=== PATIENT | female | born 1995 | race Caucasian/White ===

== ENCOUNTER 2017-11-10 19:46 | Emergency (ER) | payer OTHER ==
[~2017-11-10] VITALS: Ht 160 cm; Wt 110.3 kg
[2017-11-10 20:12] VITALS: Ht 160 cm; Wt 110.3 kg
[2017-11-10] MEDS ORDERED: ACET325T33 PO (21:50)
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
== END 2017-11-10 22:00 | disposition home or self-care (01) ==
LOC: FTE 19:46
DX: S13.4XXA Sprain of ligaments of cervical spine, initial encounter (principal); V49.50XA Passenger injured in collision with unspecified motor vehicles in traffic accident, initial encounter
CPT/HCPCS: 99283